=== PATIENT | male | born 1995 | race Caucasian/White ===

== ENCOUNTER 2017-05-23 12:19 | Emergency (ER) | payer SELFPAY ==
[~2017-05-23] VITALS: Ht 177.8 cm; Wt 77.6 kg
[2017-05-23 12:55] LABS: BASOPHIL % 0.7 % (0-2); PLATELET COUNT 305 x10^3mcL (130-400); RED CELL DISTRIBUTION WIDTH 12.6 % (11.5-14.5)
[2017-05-23 13:38] LABS: CALCIUM 9.6 mg/dL (8.5-10.1); CARBON DIOXIDE 29.8 mmol/L (21-32); CHLORIDE SERUM 103 mmol/L (98-107); CREATININE SERUM 1.2 mg/dL (0.7-1.3); GFR1 > 60 mL/min; GLUCOSE SERUM 118 mg/dL (74-106); POTASSIUM SERUM 3.2 mmol/L (3.5-5.1); SODIUM SERUM 143 mmol/L (136-145)
[2017-05-23 13:43] LABS: ALBUMIN 4.5 g/dL (3.4-5.0); ALKALINE PHOSPHATASE 92 U/L (46-116); ALT/SGPT 58 U/L (16-63); AST/SGOT 27 U/L (15-37); BILIRUBIN TOTAL 0.66 mg/dL (0.20-1.00); LIPASE 117 IU/L (73-393)
[2017-05-23 13:44] LABS: TOTAL PROTEIN, SERUM 8.8 g/dL (6.4-8.2)
[2017-05-23 14:45] VITALS: BP 114/67
== END 2017-05-23 14:45 | disposition home or self-care (01) ==
LOC: ED 12:19
PROVIDERS: Emergency Medicine
DX: N20.0 Calculus of kidney (principal)
CPT/HCPCS: J1170; J2405; J7030

== ENCOUNTER 2017-10-18 13:07 | Emergency (ER) | payer MEDICAID ==
[~2017-10-18] VITALS: Ht 180.3 cm; Wt 81.6 kg
[2017-10-18 13:21] VITALS: Ht 180.3 cm; Wt 81.6 kg
[2017-10-18 14:18] LABS: CALCIUM 8.6 mg/dL (8.5-10.1); CARBON DIOXIDE 31.5 mmol/L (21-32); CHLORIDE SERUM 104 mmol/L (98-107); CREATININE SERUM 0.8 mg/dL (0.7-1.3); GFR1 > 60 mL/min; GLUCOSE SERUM 93 mg/dL (74-106); POTASSIUM SERUM 3.5 mmol/L (3.5-5.1); SODIUM SERUM 139 mmol/L (136-145)
[2017-10-18 14:19] LABS: BASOPHIL % 0.3 % (0-2); PLATELET COUNT 190 x10^3mcL (130-400); RED CELL DISTRIBUTION WIDTH 13.3 % (11.5-14.5)
[2017-10-18 14:22] LABS: ALBUMIN 4.1 g/dL (3.4-5.0); ALKALINE PHOSPHATASE 83 U/L (46-116); ALT/SGPT 125 U/L (16-63); AST/SGOT 40 U/L (15-37); BILIRUBIN TOTAL 0.9 mg/dL (0.20-1.00); TOTAL PROTEIN, SERUM 7.5 g/dL (6.4-8.2)
[2017-10-18 15:25] VITALS: BP 117/71
== END 2017-10-18 15:21 | disposition home or self-care (01) ==
LOC: ED 13:07
PROVIDERS: Emergency Medicine
DX: N23 Unspecified renal colic (principal)
CPT/HCPCS: J1885; J7030

== ENCOUNTER 2017-10-21 04:20 | Emergency (ER) | payer MEDICAID ==
[~2017-10-21] VITALS: Ht 177.8 cm; Wt 81.6 kg
[2017-10-21 04:27] VITALS: Ht 177.8 cm; Wt 81.6 kg
[2017-10-21 05:03] LABS: BASOPHIL % 0.8 % (0-2); PLATELET COUNT 172 x10^3mcL (130-400); RED CELL DISTRIBUTION WIDTH 12.7 % (11.5-14.5)
[2017-10-21 05:19] LABS: ALBUMIN 3.7 g/dL (3.4-5.0); ALKALINE PHOSPHATASE 82 U/L (46-116); ALT/SGPT 93 U/L (16-63); AMYLASE 45 U/L (25-115); AST/SGOT 21 U/L (15-37); BILIRUBIN TOTAL 0.3 mg/dL (0.20-1.00); CALCIUM 8.6 mg/dL (8.5-10.1); CARBON DIOXIDE 32.7 mmol/L (21-32); CHLORIDE SERUM 107 mmol/L (98-107); CREATININE SERUM 1.4 mg/dL (0.7-1.3); GFR1 > 60 mL/min; GLUCOSE SERUM 124 mg/dL (74-106); LIPASE 91 IU/L (73-393); SODIUM SERUM 145 mmol/L (136-145); TOTAL PROTEIN, SERUM 6.7 g/dL (6.4-8.2)
[2017-10-21 05:24] LABS: POTASSIUM SERUM 2.9 mmol/L (3.5-5.1)
[2017-10-21 05:40] LABS: UA SPECIFIC GRAVITY 1.025 (1.005-1.035); microscopic required? YES; urine erythrocyte 3+ (NEGATIVE)
[2017-10-21 07:04] VITALS: BP 110/67
== END 2017-10-21 07:04 | disposition home or self-care (01) ==
LOC: ED 04:20
PROVIDERS: Emergency Medicine
DX: N23 Unspecified renal colic (principal); N20.0 Calculus of kidney; R11.10 Vomiting, unspecified; E87.6 Hypokalemia
CPT/HCPCS: 83880; J1885; J2405; J3010; J7030

== ENCOUNTER 2018-12-06 21:36 | Emergency (ER) | payer SELFPAY ==
[~2018-12-06] VITALS: Ht 180.3 cm; Wt 87.1 kg
[2018-12-06 21:53] VITALS: Ht 180.3 cm; Wt 87.1 kg
[2018-12-06 23:32] VITALS: BP 128/75
== END 2018-12-06 23:32 | disposition home or self-care (01) ==
LOC: ED 21:36
DX: L50.0 Allergic urticaria (principal); Z87.442 Personal history of urinary calculi